=== PATIENT | female | born 1995 | race African-American/Black ===

== ENCOUNTER 2025-06-20 14:48 | Emergency (ER) | payer BC, SELFPAY ==
[2025-06-20] MEDS ORDERED: Acetaminophen 500 MG TAB ONE (15:02)
[2025-06-20] MEDS ORDERED: Ibuprofen 800 MG TAB ONE (16:59)
== END 2025-06-20 18:52 | disposition home or self-care (01) ==
LOC: CSHERS 14:48
DX: J10.00 Influenza due to other identified influenza virus with unspecified type of pneumonia (principal)
CPT/HCPCS: 71045; 87428; 94640